=== PATIENT | female | born 1990 | race Caucasian/White ===

== ENCOUNTER 2016-02-21 21:18 | Emergency (ER) | payer SELFPAY ==
[~2016-02-21] VITALS: Ht 160 cm; Wt 50.5 kg
[2016-02-21 21:21] VITALS: BP 112/73; PULSE 90; RESP 20; O2SAT 99
--- NOTE | 2016-02-21 21:43 | ED.REPORT ---
HPI- Female Date of Service Feb 21, 2016 ED Provider: Parveen Carr MD 25 year old female who is 9 weeks with a history of ovarian cysts presents to the ER accompanied by her spouse complaining of three days of cramping lower abdominal pain. She states that the pain is similar to that associated with prior miscarriages. Associated symptoms include nausea, and mucous vaginal discharge. Patient denies dysuria, vaginal bleeding, fever, and vomiting. Nursing Notes Stated Complaint: 9 WKS PREG/ABD PAIN Chief Complaint: & Delivery Nursing Notes Reviewed: Yes Allergies: Coded Allergies: No Known Allergies (Unverified Allergy, Unknown, 10/30/14) Scheduled Cephalexin (Keflex) 500 Mg Capsule 500 MG PO QID General Time Seen by MD: 21:42 Chief Complaint Abdominal pain... (Suprapubic) Hx Obtained From: Patient Arrived By: Walk-in Sudden in Onset?: No Onset Occurred: 3 days ago Symptom Duration: Since onset Location: : Abdomen lower Quality: Painful Severity: Current: Moderate Severity: Maximum: Moderate Status: Positive - home urine HCG : 5 Para: 1 Similar Sx Previous: Yes Past Medical History Past Medical History ovarian cysts miscarriage x3 Smoking History Current Every Day Smoker Social History Alcohol Use: Denies alcohol use Drug Use: Denies drug use Ambulatory Status Independent Review of Systems Constitutional: Denies: Chills, Fever GI: Reports: Abdominal pain, Nausea, Denies: Vomiting Female: Reports: Pelvic pain, , Vaginal discharge, Denies: Dysuria, Hematuria, Vaginal bleeding - abnl Complete sys rev & neg: except as marked. Physical Exam Initial Vital Signs Vital Signs (First) Date Time Temp Pulse Resp B/P Pulse Ox O2 Delivery O2 Flow Rate FiO2 02/21/16 21:21 36.6 90 20 112/73 99 Room Air Initial VS: Reviewed General/Constitutional: Well-developed, Well-nourished Head / Eyes: Atraumatic, Normocephalic Neck: Supple, Non-tender, Full range of motion Respiratory: Breath sounds normal, Clear to auscultation, No respiratory distress Cardiovascular: Regular rate & rhythm, Heart sounds normal, Intact distal pulses Extremities: Vascular intact, Neuro intact, No swelling, No tenderness Skin: Warm, Dry, No cyanosis Neurologic: Alert, Oriented, Nonfocal Abdomen: Soft, No rebound, No distention Tenderness/Guarding/Rebound: Positive: Guarding involuntary, Guarding voluntary , Tender RLQ... (exquisite) Interpretation & Diagnostics Lab Results Interpretation Result Diagram: 02/21/16215402/21/162154 Test 02/21/16 21:55 White Blood Count 7.3th/mm3 (3.8-10.1) Red Blood Count 4.07mil/mm3 (3.90-5.20) Hemoglobin 11.3g/dL (12.0-15.6) Hematocrit 33.8% (35.0-46.0) Mean Corpuscular Volume 83.0fL (81-100) Mean Corpuscular Hemoglobin 27.8pg (27.0-35.0) Mean Corpuscular Hemoglobin Concent 33.4% (32.0-37.0) Red Cell Distribution Width 14.1% (12.3-15.4) Platelet Count 223bil/L (150-400) Urine Color Yellow (YELLOW) Urine Appearance Slightly cloudy Urine pH 7.0 (5.0-8.0) Urine Specific [place] 1.015 (1.003-1.035) Urine Protein Negativemg/dL (NEG,TRACE) Urine Glucose (UA) Negativemg/dL (NEGATIVE) Urine Ketones Negativemg/dL (NEGATIVE) Urine Occult Blood Negative (NEGATIVE) Urine Nitrite Negative (NEGATIVE) Urine Bilirubin Negative (NEGATIVE) Urine Urobilinogen Normalmg/dL (NORMAL) Urine Leukocyte Esterase Moderate (NEGATIVE) Urine RBC 0-2/hpf (0-2) Urine WBC 6-10/hpf (0-5) Urine Epithelial Cells Occasional/hpf (NONE-MOD) Urine Crystals Amorphous phosphates Urine Bacteria Moderate/hpf (NONE-FEW) Urine Hyaline Casts None/lpf (NONE) Urine Granular Casts None seen (NONE SEEN) Urine Waxy Casts None seen (NONE SEEN) Urine Red Blood Cell Casts None seen (NONE SEEN) Urine White Blood Cell Casts None seen (NONE SEEN) Urine Mucus None seen (None Seen) Urine Trichomonas None seen (NONE SEEN) Urine Yeast None (NONE SEEN) Urine Culture Reflexed Indicated Sodium Level 135mEq/L (134-144) Potassium Level 3.9mEq/L (3.5-5.2) Chloride Level 99mEq/L (97-108) Carbon Dioxide Level 25mmol/L (18-29) Blood Urea Nitrogen 6mg/dL (6-20) Creatinine 0.47mg/dL (0.57-1.00) Estimat Glomerular Filtration Rate 233mL/min (>59) Glucose Level 86mg/dL (60-99) Calcium Level 8.8mg/dL (8.5-10.1) Total Bilirubin 0.2mg/dL (0.0-1.2) Aspartate Amino Transf (AST/SGOT) 16U/L (0-50) Alanine Aminotransferase (ALT/SGPT) 13U/L (0-32) Alkaline Phosphatase 54U/L (25-150) Total Protein 6.8g/dL (6.4-8.4) Albumin 3.6g/dL (3.4-5.0) HCG Beta Subunit [id number]/mL US Focused OB IMPRESSION: Single live uterine with heart rate documented at 168 beats per minute. Estimated ultrasound age 10 weeks 6 days. Maria Fernanda-gestational bleed along the left side of the gestational sac measuring 2.5 x 0.9 x 0.7 cm. Right corpus luteum cyst. Electronically signed by Trevor Corona MD Exam Performed by: Allied health pract Exam Type: Diagnostic Clinical Category: Symptom-based Exam Interpreted by: Radiologist Re-Eval/Medical Decision Med Decision/Clinical Course 25-year-old with two prior miscarriages presents nine weeks , with crampy abdominal pain, but most prominent in the right lower quadrant. There is no bleeding. The ultrasound reveals a small appendix, with no evident associated findings of appendicitis. There is a luteum cyst on that side. No other findings of concern, and the appears normal. There is a urinary tract infection evident on her urinalysis. Rocephin given here with Keflex to follow. Follow-up with OB/PCP at this stage at nine weeks. Home with Vicodin, fluids rest, and evaluation at her OB office. Re-Evaluation/Progress #1: Time of Eval: 23:27 Re-Evaluation/Progress Note: Patient is receiving ultrasound. Communicated to home theatre technician the extent of the required study. Re-Evaluation/Progress #2: Time of Eval: 00:41 Re-Evaluation/Progress Note: Discussed lab and radiology results and plan to discharge. Patient is amenable to the plan. Return precautions given. All other questions addressed. Counseled Regarding: Diagnosis, Lab results, Need for follow-up, When/why to return to ED Discharge & Departure Impression: Primary Impression: Urinary tract infection Additional Impressions: First trimester Pelvic pain Disposition: Home Discharge Condition All VS Reviewed: Yes Condition: Stable Patient Instructions: Urinary Tract Infection in Women (DC) Additional Instructions: Your ultrasound shows a normal-appearing fetus. Her appendix is not completely visualized but appears normal. Her white count is normal and the rest of her labs are reassuring. G do a urinary tract infection that will require treatment. Take Keflex four times daily. Drink plenty of fluids and stay well-hydrated. Ibuprofen and then Vicodin if needed for pain. Follow-up with your doctor in the office. Return if any immediate issues. Referrals: NOPCP (PCP) Scribe Attestation Portions of this note were transcribed by Alfonso Nunez. I, Dr. Carr, personally performed the history, physical exam and medical decision-making; I reviewed and confirmed the accuracy of the information in the transcribed note. Signed by: Juan David Mckenzie. 02/22/2016, 01:36 Parveen Carr MD Feb 21, 2016 21:43 ALFONSO NUNEZ Feb 21, 2016 21:51
[2016-02-21] MEDS ORDERED: 0.9% Sodium Chloride 1,000 ML IV ONE (21:48)
[2016-02-21 22:07] LABS: Mean Corpuscular Hemoglobin 27.8 pg (27.0-35.0)
[2016-02-21 22:19] LABS: APPEARANCE,URINE SLIGHTLY CLOUDY (CLEAR,HAZY); COLOR,URINE YELLOW (YELLOW); OCCULT BLOOD,URINE NEGATIVE (NEGATIVE); UROBILINOGEN,URINE NORMAL (NORMAL)
[2016-02-22] MEDS ORDERED: cefTRIAXone Inj 2,000 MG in IV Premix 1 EACH IV ONE (00:30)
[2016-02-22] MEDS ORDERED: HYDROcodone-APAP 5-325 mg Tablet PO ONE (00:45)
[2016-02-22] MEDS ORDERED: _HYDROcodone/APAP 5-325 mg Tablet PO PRN (00:45)
[2016-02-22] MEDS ORDERED: CEPH-512 PO (01:08)
[2016-02-22 01:37] VITALS: BP 99/58; PULSE 68; RESP 18; O2SAT 100
--- NOTE | 2016-02-22 08:09 | DRSVH ---
PROCEDURE: US OB<14 WKS+OB TRANSVAG INDICATIONS: pelvic pain OUTSIDE/PRIOR DATING DATA: Last menstrual period (LMP): Unknown. First dating scan (date and location): 02/21/16. Estimated date of delivery (ZULY) from first dating scan: 09/12/16. TECHNIQUE: Real-time scanning was performed of the fetus and maternal pelvic organs, with image documentation. Endovaginal scanning was also performed to better visualize the fetus and maternal ovaries. COMPARISON: None. 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 Measurement variability in dating: +/- 4 weeks by LMP, +/- 7 days by mean sac diameter (use before 6 weeks gestation if crown-rump length not able to be measured), +/- 5 days by crown-rump length (6-12 weeks gestation). Maternal organs: Ovaries measure up to 2.9 x 3.3 x 2.1 cm on the right and 1.7 x 2.2 x 1.5 cm on the left 3rd there is a thickwalled cystic structure in the right ovary measuring up to 2.8 x 2.2 x 1.8 cm consistent with a corpus luteal cyst. Limited images through the kidneys demonstrate no hydroneph rosis. Limited evaluation in the right lower quadrant demonstrates an apparent blind-ending tubular structure suggestive of the appendix which appears normal in diameter measuring up to 4 mm. No free fluid. IMPRESSION: 1. Single living intrauterine with calculated gestational age of 10 weeks 6 days correspon ding to an estimated delivery date of 09/12/16. 2. Small subchorionic hematoma demonstrated. 3. Probable corpus luteal cyst in the right ovary. 4. Probable appendix demonstrated in the right lower quadrant appears normal in caliber. Dictated by: Billy Alexander M.D. on 02/22/2016 at 8:05 Approved by: Billy Alexander M.D. on 02/22/2016 at 8:05
== END 2016-02-22 01:39 | disposition home or self-care (01) ==
LOC: SED 21:18
DX: O23.41 Unspecified infection of urinary tract in pregnancy, first trimester (principal); O99.331 Smoking (tobacco) complicating pregnancy, first trimester; O09.291 Supervision of pregnancy with other poor reproductive or obstetric history, first trimester; O34.81 Maternal care for other abnormalities of pelvic organs, first trimester; N83.11 Corpus luteum cyst of right ovary; Z3A.09 9 weeks gestation of pregnancy
CPT/HCPCS: 36415; 76801; 76817; 80053; 81000; 81025; 84702; 85027; 87086; 87088; 96361; 96365; 99285; J0696; J7030